=== PATIENT | female | born 1950 | race Caucasian/White ===

== ENCOUNTER 2016-08-08 09:03 | Emergency (ER) | payer OTHER ==
[2016-08-08 09:21] VITALS: BP 135/95; PULSE 64; RESP 18; TEMP 98; O2SAT 94
--- NOTE | 2016-08-08 10:06 | UCPHY ---
H & P Time Seen by Provider: 08/08/16 09:59 Patient Type: Established HPI/ROS: This patient presents with a chief complaint of redness in her left eye which she 1st noticed this morning when she awakened and looked in the mirror. She was fine last night she denies pain or any visual changes. She is otherwise well and is not on anticoagulants. Smoking Status: Never smoked Physical Exam: This is a well-developed well-nourished female who is in no acute distress. She is alert lucid and has normal mental status. Her gait and motor function are normal. Exam examination of the eyes reveals equal pupils and normal reactivity. Extraocular muscle function is normal. Overlying the medial sclera there is an obvious hemorrhage. There is no significant swelling. Constitutional: Initial Vital Signs Temperature (C) 36.6 C 08/08/16 09:09 Heart Rate 64 08/08/16 09:09 Respiratory Rate 18 08/08/16 09:09 Blood Pressure 135/95 H 08/08/16 09:09 O2 Sat (%) 94 08/08/16 09:09 O2 Delivery Mode Room Air Allergies/Adverse Reactions: No Known Allergies Allergy (Verified 01/11/14 16:06) Home Medications: Medication Instructions Recorded Atorvastatin Calcium [Lipitor 40 40 mg PO HS 04/29/13 mg (RX)] Losartan Potassium [Cozaar] 50 mg PO HS 04/29/13 Cholecalciferol Vit D3 [Vitamin D3 1,000 units PO QID 07/27/13 1000 units (OTC)] Natalol 01/11/14 Departure - Departure Disposition: Home, Routine, Self-Care Clinical Impression: Subconjunctival hemorrhage of left eye Condition: Good Instructions: Subconjunctival Hemorrhage (ED) Additional Instructions: If symptoms have not resolved within 3 weeks you should be re-evaluated. Cause for concern would be visual difficulties or pain. Referrals: Mckenzie Lewis [Primary Care Provider] - As per Instructions - PQRS PQRS Measurement: Not applicable
== END 2016-08-08 10:11 | disposition home or self-care (01) ==
LOC: CED 09:03
DX: H11.32 Conjunctival hemorrhage, left eye (principal)
CPT/HCPCS: 99213-PO; G0463-PO

== ENCOUNTER → 2016-12-21 | Outpatient (CLI) | payer OTHER | LOC: CIMAGING 13:46 | PROVIDERS: ATTEND Family Medicine | DX: R31.9 Hematuria, unspecified (principal); R10.9 Unspecified abdominal pain; Z87.442 Personal history of urinary calculi; Z95.818 Presence of other cardiac implants and grafts; I70.0 Atherosclerosis of aorta | CPT/HCPCS: 74176-PO ==

== ENCOUNTER → 2016-12-24 | Outpatient (CLI) | payer OTHER | LOC: BRMIMAGING 12:31 | PROVIDERS: ATTEND Family Medicine | DX: Z13.820 Encounter for screening for osteoporosis (principal) ==

== ENCOUNTER → 2016-12-26 | Outpatient (CLI) | payer OTHER ==
[~2016-12-26] MED LIST: IOPAMIDOL (ISOVUE-300) 100 ML BTL ONE
== END ==
LOC: CIMAGING 12:52
PROVIDERS: ATTEND Family Medicine
DX: K76.89 Other specified diseases of liver (principal)
CPT/HCPCS: 74177; Q9967